=== PATIENT | female | born 1960 | race Hispanic/Latino ===

== ENCOUNTER 2019-08-08 07:25 | Day surgery (SDC) | payer OTHER ==
[2019-08-08] MEDS ORDERED: PROPOFOL 200 MG/20 ML VIAL IV ONE (07:59)
[2019-08-08] MEDS ORDERED: LIDOCAINE 1% MPF 5 ML VIAL ONE (07:59)
[2019-08-08] MEDS ORDERED: GLYCOPYRROLATE 0.2 MG/ML SYR ONE (08:07)
--- NOTE | 2019-08-08 08:39 | ENDO RPT ---
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 ESTIMATED BLOOD LOSS: None CONSENT: The patient understands the risks and benefits of the procedure and understands that these risks include, but are not limited to: sedation, allergic reaction, infection, perforation and/or bleeding. Alternative means of evaluation and treatment include, among others: physical exam, x-rays, and/or surgical intervention. The patient elects to proceed with this endoscopic procedure. DESCRIPTION OF PROCEDURE: During intra-op preparation period all mechanical medical equipment was checked for proper function. Hand hygiene and appropriate measures for infection prevention was taken. Procedure, possible complications, alternatives including, but not limited to possibility of bleeding, perforation, tear, infection, sepsis, need for surgery, need for blood transfusion, were explained to the patient. After the risks, benefits and alternatives of the procedure were thoroughly explained, Informed consent was verified, confirmed and timeout was successfully executed by the treatment team. The patient was placed in the left lateral position. A digital rectal exam was performed and revealed several skin tags and A digital rectal exam was performed and revealed internal hemorrhoids. After appropriate level of anesthesia, the scope was passed. The EC-[id number] ([id number]) endoscope was introduced through the anus and advanced to the cecum, which was identified by both the appendix and ileocecal valve. The quality of the prep was good. The instrument was then slowly withdrawn as the colon was fully examined. Scope withdrawal time was 7 minutes. COLON FINDINGS: A normal appearing cecum, ileocecal valve, and appendiceal orifice were identified. the ascending, transverse, descending, sigmoid colon, and rectum appeared unremarkable. Retroflexed views revealed no abnormalities. The scope was then completely withdrawn from the patient and the procedure terminated. ADVERSE EVENTS: There were no complications. IMPRESSIONS: A normal appearing cecum, ileocecal valve, and appendiceal orifice were identified. the ascending, transverse, descending, sigmoid colon, and rectum appeared unremarkable RECOMMENDATIONS: 1. fiber rich diet 2. Monitor for any evidence of rectal bleeding. 3. yearly hemoccult starting in 4 years 4. hemorrhoidal hygiene 5. follow-up: office 2 week(s) RECALL: Return in 10 year(s) for Colonoscopy. Sooner if symptoms occur Fili Elliott DR eSigned: Fili Elliott DR 08/08/2019 8:38 AM cc: CPT CODES: ICD9 CODES: 1. 455.9 Residual hemorrhoidal skin tags 2. 455.2 Internal hemorrhoids with other complication PATIENT NAME: Caroline Morataya MR#: [id number]
[2019-08-08 09:45] VITALS: TEMP 97.8
[2019-08-08 09:47] VITALS: BP 112/53; O2SAT 98
== END 2019-08-08 09:14 | disposition home or self-care (01) ==
LOC: OR 07:25
PROVIDERS: ATTEND Surgery
PROC: 0DJD8ZZ Inspection of Lower Intestinal Tract, Via Natural or Artificial Opening Endoscopic (ICD-10-PCS; principal; 2019-08-08 08:30)
DX: Z12.11 Encounter for screening for malignant neoplasm of colon (principal); K64.8 Other hemorrhoids; L91.8 Other hypertrophic disorders of the skin; M10.9 Gout, unspecified; Z85.53 Personal history of malignant neoplasm of renal pelvis
CPT/HCPCS: 45378; J2704

== ENCOUNTER 2020-01-01 10:29 | Day surgery (SDC) | payer OTHER ==
[2019-12-29 11:40] LABS: Protime INR 0.95; Urine Appearance CLEAR; Urine Bilirubin NEGATIVE (NEG); Urine Blood 1+ (NEG); Urine Color YELLOW; Urine Glucose NEGATIVE (NEG); Urine Protein NEGATIVE (NEG); Urine Specific Gravity <=1.005 (1.005-1.030); Urine Urobilinogen 0.2 mg/dL (0.2-1.0); Urine pH 6.5 (5.0-7.0)
[2019-12-29 11:41] LABS: Urine Microscopic Reflex ORDER UMIC
[2019-12-29 11:45] LABS: Absolute Lymphocytes (CBC) 2.3 K/uL (0.7-4.9); Basophils % 0.3 % (0-1.3); Hematocrit 44.6 % (36.0-45.0); Lymphocytes % 26.3 % (15.3-44.8); MPV 8.1 fL (7.6-11.3); RBC Red Blood Cell Count 5.43 M/uL (3.86-4.86)
[2019-12-29 11:46] LABS: Urine Bacteria <20 /HPF (<20); Urine RBC <5 /HPF (NONE SEEN)
[2019-12-29 11:47] LABS: Urine Culture Reflex Order NOT NEEDED
[2019-12-29 11:48] LABS: BUN Blood Urea Nitrogen 10 mg/dL (7-18); Bicarbonate 31 mmol/L (21-32); Glucose Level 123 mg/dL (74-106); Potassium 3.8 mmol/L (3.5-5.1); Sodium Level 140 mmol/L (136-145)
--- OUTSIDE RECORDS SUMMARY | 2020-01-01 10:32 | XMS REPORT | Summary of Care ---
:1960 Author Organization [facility] Address [address] [place] [address] Care Team Providers Name Role Phone Dada Enriquez MD Primary Care Provider Reason for Referral (Routine) Status Reason Specialty Diagnoses / Referred By Referred To Procedures Contact Contact New Request Sleep Disorder Diagnoses Snoring Gasping for breath Unrefreshed by sleep Daytime hypersomnolence Erythrocytosis LATOYA (obstructive sleep apnea) Mina Diagnostic Procedures CONSULT/REFERRAL SLEEP CLINIC ADULT PULM Preferred Location: [facility] Dada Richards MD [address] [place] [address] [place] [address] Reason for Visit Reason Comments Results sleep study results Encounter Details Date Type Department Care Team Description 11/26/2019 Telephone [facility] Family Dada Enriquez, Results ( sleep study Medicine - Olivia TRINH results) [facility] [address] [place] [address] [place] [address] Allergies No Known Allergiesdocumented as of this encounter (statuses as of 11/26/2019) Medications Medication Sig Dispensed Refills Start Date End Date Status allopurinol 300 mg Take 300 mg by 0 Active tablet mouth daily. conjugated estrogens Insert into vagina 0 Active 0.625 mg/gram vaginal at bedtime. cream Blood-Glucose Meter Check glucose once 1 Each 0 10/28/2019 Active (ONETOUCH VERIO IQ daily before METER) breakfast; MiscIndications: Type Diagnosis code 2 diabetes mellitus E11.9 without complication, without long-term current use of insulin blood sugar Check glucose once 50 Strip 11 10/28/2019 Active diagnostic (ONETOUCH daily before VERIO) breakfast; stripIndications: Diagnosis code Type 2 diabetes E11.9 mellitus without complication, without long-term current use of insulin lancets (ONE TOUCH Check glucose once 50 Each 11 10/28/2019 Active DELICA) 33 gauge daily before MiscIndications: Type breakfast; 2 diabetes mellitus Diagnosis code without complication, E11.9 without long-term current use of insulin documented as of this encounter (statuses as of 11/26/2019) Active Problems Problem Noted Date LATOYA (obstructive sleep apnea) 11/26/2019 Erythrocytosis 10/28/2019 Overview: Sleep study ordered 10/28/19 History of kidney cancer 10/07/2019 Type 2 diabetes mellitus without complication 10/07/2019 Breast lump documented as of this encounter (statuses as of 11/26/2019) Immunizations Name Administration Dates Next Due Influenza Virus Vaccine Recomb Quad IM, Preserv and ABX 08/21/2019 Free 18-64 YRS documented as of this encounter Social History Tobacco Use Types Packs/Day Years Used Date Never Smoker Smokeless Tobacco: Never Used Alcohol Use Drinks/Week oz/Week Comments No Sex Assigned at Date Recorded Not on file Job Start Date Occupation Industry Not on file Not on file Not on file Travel History Travel Start Travel End No recent travel history available. documented as of this encounter Last Filed Vital Signs Not on filedocumented in this encounter Plan of Treatment Date Type Specialty Care Team Description 04/08/2020 Office Visit Family Medicine Dada Enriquez MD [address] [place] [address] [place] [address] Health Maintenance Due Date Last Done Comments HEPATITIS C (HCV) SCREEN 1960 PNEUMOCOCCAL 0-64 YEARS COMBINED SERIES (1 1965 of 1 - PPSV23) EYE EXAM 1969 LDL-C 1969 URINE MICROALBUMIN 1969 DTaP,Tdap,and Td Vaccines (1 - Tdap) 1970 FOOT EXAM 1977 Breast Cancer Screening (MAMMOGRAM) 1999 COLONOSCOPY 2009 Zoster Recombinant Vaccine (SHINGRIX) (1 2009 of 2) HgA1C 04/07/2020 10/07/2019 CREATININE (SERUM) 10/07/2020 10/07/2019, 03/20/2007 PAP SMEAR 06/29/2022 06/29/2019 INFLUENZA VACCINE Completed 08/21/2019 documented as of this encounter Results Not on filedocumented in this encounter Visit Diagnoses Diagnosis LATOYA (obstructive sleep apnea) - Primary Obstructive sleep apnea (adult) (pediatric) Snoring Other dyspnea and respiratory abnormality Gasping for breath Unrefreshed by sleep Other sleep disturbances Daytime hypersomnolence Erythrocytosis Reserved for inherently not codable concepts WITHOUT codable children documented in this encounter Insurance Payer Benefit Plan / Subscriber ID Effective Dates Phone Address Type Group COMMERCIAL COMMERCIAL [phone]-Prese HMO/PPO/PO NON-CONTRACT NON-CONTRACT nt S GENERIC GENERIC AETNA AETNA HMO [id number] 2015-Pres HMO t documented as of this encounter
--- OUTSIDE RECORDS SUMMARY | 2020-01-01 10:32 | XMS REPORT ---
:1960 Author [facility] Address [address] [place] [address] Dr. Melton [address] [place] [address] Care Team Providers Name Role Phone Unavailable Unavailable Unavailable Problems This patient has no known problems. Allergies, Adverse Reactions, Alerts This patient has no known allergies or adverse reactions. Medications This patient has no known medications.
--- OUTSIDE RECORDS SUMMARY | 2020-01-01 10:32 | XMS REPORT ---
:1960 Author Organization [employer] Care Team Providers Name Role Phone Pinky Neal Provider Role Unavailable Allergies, Adverse Reactions, Alerts Substance Reaction Event Type N.K.D.A. Info Not Available Non Drug Allergy Problems Problem Type Condition Code Onset Dates Condition Status Problem Kidney stones N20.0 Active Problem Rectocele N81.6 Active Assessment Kidney stones N20.0 Active Assessment Renal cell carcinoma of left kidney C64.2 Active Medications Medication Code Code Instructions Start End Date Status Dosage System Date Allopurinol [facility] [id number] 300 MG Orally Jul 31December Active as directed daily 2018 Results No Known Results Summary Purpose [employer] Submission
--- OUTSIDE RECORDS SUMMARY | 2020-01-01 10:32 | XMS REPORT | Summary of Care ---
:[address] [facility] Address [address] [place] [address] Care Team Providers Name Role Phone Dada Enriquez MD Primary Care Provider Reason for Visit Reason Comments Medical Records Encounter Details Date Type Department Care Team Description 11/13/2019 Telephone [facility] Family Dada Enriquez MD Medical Records Medicine - [address] [address] [place] [address] Allergies No Known Allergiesdocumented as of this encounter (statuses as of 11/13/2019) Medications Medication Sig Dispensed Refills Start Date [...] as of this encounter (statuses as of 11/13/2019) Active Problems Problem Noted Date Erythrocytosis 10/28/2019 Overview: Sleep study ordered 10/28/19 History of kidney cancer 10/07/2019 Type 2 diabetes mellitus without complication 10/07/2019 Breast lump documented as of this encounter (statuses as of 11/13/2019) Immunizations Name Administration Dates Next Due Influenza [...] Office Visit Family Medicine Dada Enriquez MD [address] [place] [address] [place] [address] Health Maintenance Due Date Last Done [...] Results Not on filedocumented in this encounter Insurance Payer Benefit Plan / Subscriber ID Effective Dates Phone Address Type Group COMMERCIAL COMMERCIAL [phone]-Juan HOFFMANO/TOMO/PO NON-CONTRACT NON-CONTRACT nt S GENERIC GENERIC AETNA AETNA O [id number] 2015-Dandre HERNANDEZ t documented as of this encounter
--- OUTSIDE RECORDS SUMMARY | 2020-01-01 10:32 | XMS REPORT | Summary of Care ---
:1960 Author Organization [facility] - Health Address [address] [place] [address] Care Team Providers Name Role Phone Mark CenterFalguni elishaista Richards MD Primary Care Provider Encounter Details Date Type Department Care Team Description 11/21/2019 Orders Only [facility] Doctor Unassigned, No [address] [facility] [place] [address] [address] [place] [address] Allergies No Known Allergiesdocumented as of this encounter (statuses as of 11/21/2019) Medications Medication Sig Dispensed Refills Start Date [...] as of this encounter (statuses as of 11/21/2019) Active Problems Problem Noted Date Erythrocytosis 10/28/2019 Overview: Sleep study ordered 10/28/19 History of kidney cancer 10/07/2019 Type 2 diabetes mellitus without complication 10/07/2019 Breast lump documented as of this encounter (statuses as of 11/21/2019) Immunizations Name Administration Dates Next Due Influenza [...] Office Visit Family Medicine Dada Enriquez MD [address] [place] [address] [place] [address] Health Maintenance Due Date Last Done [...] Completed 08/21/2019 documented as of this encounter Procedures Procedure Name Priority Date/Time Associated Diagnosis Comments EXTERNAL PROVIDER Routine 11/21/2019 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
--- OUTSIDE RECORDS SUMMARY | 2020-01-01 10:32 | XMS REPORT | Summary of Care ---
:1960 Author Organization [facility] - [facility] Address [address] [place] [address] Care Team Providers Name Role Phone SmithtonFalguni elishaista Richards MD Primary Care Provider Encounter Details Date Type Department Care Team Description 11/12/2019 Orders Only [facility] Doctor Unassigned, No [address] [facility] [place] [address] [address] [place] [address] Allergies No Known Allergiesdocumented as of this encounter (statuses as of 11/12/2019) Medications Medication Sig Dispensed Refills Start Date [...] as of this encounter (statuses as of 11/12/2019) Active Problems Problem Noted Date Erythrocytosis 10/28/2019 Overview: Sleep study ordered 10/28/19 History of kidney cancer 10/07/2019 Type 2 diabetes mellitus without complication 10/07/2019 Breast lump documented as of this encounter (statuses as of 11/12/2019) Immunizations Name Administration Dates Next Due Influenza [...] Office Visit Family Medicine Dada Enriquez MD [address] [place] [address] [place] [address] Health Maintenance Due Date Last Done [...] Procedure Name Priority Date/Time Associated Diagnosis Comments ASSIGNMENT OF BENEFITS Routine 11/12/2019 9:23 AM DIRECTOR INSTRUMENTATION documented in this encounter Results Not on filedocumented in this encounter Insurance Payer Benefit Plan / Subscriber ID Effective Dates Phone Address Type Group COMMERCIAL COMMERCIAL [phone]-Prese HMO/PPO/PO NON-CONTRACT NON-CONTRACT nt S GENERIC GENERIC AETNA AETNA O [id number] 2015-[place]andre [facility] [place] documented as of this encounter
--- OUTSIDE RECORDS SUMMARY | 2020-01-01 10:32 | XMS REPORT | Summary of Care ---
:1960 Author Organization [facility] - Health Address [address] [place] [address] Care Team Providers Name Role Phone KeymarFalguni elishaista Richards MD Primary Care Provider Encounter Details Date Type Department Care Team Description 11/06/2019 Orders Only [facility] Doctor Unassigned, No [address] [facility] [place] [address] [address] [place] [address] Allergies No Known Allergiesdocumented as of this encounter (statuses as of 11/14/2019) Medications Medication Sig Dispensed Refills Start Date [...] as of this encounter (statuses as of 11/14/2019) Active Problems Problem Noted Date Erythrocytosis 10/28/2019 Overview: Sleep study ordered 10/28/19 History of kidney cancer 10/07/2019 Type 2 diabetes mellitus without complication 10/07/2019 Breast lump documented as of this encounter (statuses as of 11/14/2019) Immunizations Name Administration Dates Next Due Influenza [...] Office Visit Family Medicine Dada Enriquez MD [address] [place] [address] [place] [address] Health Maintenance Due Date Last Done [...] Procedure Name Priority Date/Time Associated Diagnosis Comments AUTHORIZATION TO RELEASE Routine 11/06/2019 12:01 AM 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
[2020-01-01] MEDS ORDERED: Ringers Lactate 1,000 ML IV ONE ×2 (10:49→15:05)
[2020-01-01] MEDS ORDERED: SCOPOLAMINE HYDROBROMIDE PATCH TD ONE ×2 (11:55→12:00)
[2020-01-01] MEDS: CEFAZOLIN/SWI 1gm 1 GM/10 ML SYR ONE ×2 (12:35→13:50)
[2020-01-01] MEDS ORDERED: propofoL 200 MG/20 ML VIAL IV ONE (12:41)
[2020-01-01] MEDS ORDERED: GLYCOPYRROLATE 0.2 MG/ML SYR ONE (12:42)
[2020-01-01] MEDS ORDERED: MIDAZOLAM HCL 2 MG/2 ML INJ ONE (12:42)
[2020-01-01] MEDS ORDERED: FENTANYL CITR 250 MCG/5 ML ONE (12:44)
[2020-01-01] MEDS ORDERED: LIDOCAINE 2% MPF 5 ML VIAL ONE (12:44)
[2020-01-01] MEDS ORDERED: ROCURONIUM 50 MG/5 ML VIAL IV ONE (12:48)
[2020-01-01] MEDS ORDERED: LIDOCAINE JELLY 2%- 5 ML TUBE ONE (12:48)
[2020-01-01] MEDS ORDERED: ONDANSETRON 4 MG/2 ML VIAL ONE ×2 (12:48→16:48)
[2020-01-01] MEDS: VASOPRESSIN 20 UNIT/ML VIAL ONE ×3 (12:58→14:30)
[2020-01-01] MEDS ORDERED: NA CHLORIDE 0.9% 100 ML IV ONE (12:59)
[2020-01-01] MEDS ORDERED: CEFAZOLIN/SWI 1gm 1 GM/10 ML SYR ONE (13:00)
[2020-01-01] MEDS ORDERED: EPHEDRINE SULF 50 MG/ML VIAL ONE (14:36)
[2020-01-01] MEDS: HYDROMORPHONE HCL 1 MG/ML INJ ONE ×6 (16:45→17:18)
[2020-01-01] MEDS ORDERED: KETOROLAC 30 MG/ML INJ ONE (16:49)
[2020-01-01 17:55] VITALS: O2SAT 100
[2020-01-01] MEDS ORDERED: MORPHINE 4 MG/ML SYR IV PRN ×2 (18:27→18:30)
[2020-01-01] MEDS ORDERED: ACETAMINOPHEN 325 MG TABLET PO PRN ×2 (18:27→18:29)
[2020-01-01] MEDS ORDERED: PROMETHAZINE INJ 25 MG/ML AMP IV PRN ×2 (18:32→18:40)
[2020-01-01] MEDS ORDERED: PROMETHAZINE 25 MG TABLET PO PRN ×2 (18:33→18:40)
[2020-01-01] MEDS: Ringers Lactate 1,000 ML IV SCH (19:00)
[2020-01-01 19:17] VITALS: BMI 27.2
--- NOTE | 2020-01-02 01:18 | OP ---
Date of Procedure: 01/01/2020 Surgeon: Huma Noel MD [employer] Stitcher: Vanessa Mc. Preoperative Diagnoses: 1.Stage II posterior wall defect. 2.Perineocele. 3.Possible uterine prolapse. 4.Urinary frequency. Postoperative Diagnoses: 1.Stage II posterior wall defect. 2.Posterior enterocele. 3.Perineocele. 4.Stage I anterior wall defect. 5.Urinary frequency. Procedures Performed: 1.Posterior repair (rectocele repair). 2.Posterior enterocele repair. 3.Perineocele repair. 4.Cystoscopy. Estimated Blood Loss: Minimal. Specimens: No specimens. Complications: No complications. Drains: Kiran catheter. Urine Output: 200. Findings: -1, -2, -6, 5, thin, 8 cm, 0, +1, and -5. Posterior enterocele was present at the perineu m. The perineal body was very thin. The sphincter muscles have also been the external lalit sphincter as well as the perineal body was thin. Indication For Procedure: The patient is a 59-year-old female who presented for left lower quadrant pain and vaginal bulge symptoms and vaginal atrophy. The prolapse has significantly been bothersome since March 2019 when she picked up something heavy at work and felt something come out of her bottom. Did not feel the bulge at all times only notices it when she stands for long periods of time. She went to see her urologist and was told that this was the rectocele that she needed surgery and referr ed over here. 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 Past medical history is significant for left renal cell carci noma. She had a partial nephrectomy on the left side in 2013 and she has been following regularly wi th her urologist since then. The patient was then consented, possible sacrospinous fixation was disc ussed if the apical support appears to have been lost, but if not and the exam is consistent with wha t is outpatient, then she would not need a sacrospinous fixation. For her urinary frequency, discuss ed about having a cystoscopy and this was done, and she was consented. Description Of Procedure: 2 g of Ancef was given preop. She was taken back to the OR after re-conse nting in the preop area. Her children and her dbibxx-ys-spy and brother were present. She was placed in a supine fashion on the operating table. General anesthesia given. Placed in a do rsal lithotomy position using Zach stirrups. Pelvic exam was performed and POP-Q as above. Abdomen , lower abdomen, vulva, vagina, and perineum were prepped and draped in a sterile fashion. Kiran was placed to drain the bladder and clamped with a Lissette. The perineum was inspected. Rectovaginal exa m was performed again. Gloves changed. Then, 2 Allis clamps were placed at the ends of th e hymenal ring. Then, the perineum given the defect that it had as a perineocele as well as the post erior wall were all inspected. The Allis clamp was placed at least one-half the way up on the party chief ior wall and then Allis was placed on the perineal skin. After injecting with dilute vasopressin, pe rineum was incised in a triangular fashion and then the posterior wall was also marked out with a marylou mond-shaped incision on the vaginal epithelium. The vaginal epithelium was denuded. The rectovagina l septum was mostly present in the central area in the lower one-third. It seemed to be detached fro m the top, especially on the left side of it and then in the distal aspect, it was detached from the perineal body as well as from both sides in the form of a curved transverse defect. The sphincter ap peared to be torn as well. So there was a posterior enterocele as well and plan was to open the posterior vaginal epithelium in a yadira-shape, then go up dissect the rectovaginal septum posterior enterocele away from the vagina l epithelium, then laterally the sides were exposed. The initial incision was made with a scalpel an d dissection carried with a scalpel. Then, once all the posterior wall was exposed, posterior entero osvaldo reduced with the help of 3-0 Monocryl in a pursestring fashion. There was no evidence of any ne ed for pulling the rectovaginal septum all the way to the pericervical ring. However, besides this i t was also almost impossible to bring the fascia up to the pericervical ring. So after the enterocel e was closed, then we started the repair of the rectovaginal septum starting in the left lateral aspe ct and continuous running 2-0 PDS suture was taken all the way down to the level of the perineal body . Perineal body defect was done with interrupted 2-0 Vicryl sutures. After dissecting laterally mitul ugh to make sure the lateral ends of the deep transverse perinei were also reapposed. Once all these 3 stitches were placed, then the PDS suture was passed through the perineal body and sutured again t o the right lateral wall without curvilinear defect was present. Once the entire defect was rectifie d, there was still a space with no rectovaginal septum between the proximal part of the septum and th e pericervical ring. However, without the help of a graft, the fascia could not be stretched all the way up without tension and then since she has a primary defect, there was no benefit by placing the graft augmented repair. So, we proceeded with the site-specific defect repair and then the vaginal e pithelium was trimmed appropriately. The perineal body was reconstructed by bringing the external an al sphincter together with the help of two 2-0 Vicryl sutures in an end-to-end fashion using a horizo ntal mattress suture. Both sutures were placed in a similar fashion. Then, the perineal body was re constructed with the help of 2-0 Vicryl sutures that were interrupted. With a filling of the rectum, the sutures were placed and once the entire thing was closed then the posterior rectovaginal septum was sutured to the perineal body, so this would not separate. Once all this was done, the vaginal ep ithelium was trimmed appropriately and then closed with the help of 2-0 Vicryl in a continuous runnin g horizontal mattress fashion. 3-0 Vicryl was used in the distal most aspect to finish the perineal body defect repair and then subcutaneously brought in and tied inside the hymenal opening. The hymen al was in good apposition. Rectal exam negative for any foreign body or sutures. Cystoscopy was performed. The Kiran was removed. Both ureteric orifices patent and no evidence of a ny stones or tumors in the bladder. The entire bladder was well visualized including the lateral wal ls, anterior wall, periurethral area, and the entire trigone. The bladder was drained. Kiran was re placed. Vaginal packing was placed. The patient was recovered from anesthesia and taken to PACU in stable condition. EBL was minimal. Instrument, needle, and sponge counts were correct. We will see her back in a week. She will be on the floor for observation overnight. LARY/ANGELICA Voice ID: [id number] Report ID: [id number]
[2020-01-02] MEDS: Ringers Lactate 1,000 ML IV SCH (03:00)
[2020-01-02] MEDS ORDERED: MORPHINE 4 MG/ML SYR IV PRN (04:11)
[2020-01-02 12:25] VITALS: BP 112/61; TEMP 98
== END 2020-01-02 11:50 | disposition home or self-care (01) ==
LOC: OR 10:29 → 2ND-WC 16:37 → OR 01-02 11:50
PROVIDERS: ATTEND Obstetrics & Gynecology
PROC: 0WQNXZZ Repair Female Perineum, External Approach (ICD-10-PCS; 2020-01-01)
PROC: 0UQF0ZZ Repair Cul-de-sac, Open Approach (ICD-10-PCS; 2020-01-01)
PROC: 0JQC0ZZ Repair Pelvic Region Subcutaneous Tissue and Fascia, Open Approach (ICD-10-PCS; principal; 2020-01-01 11:30)
DX: N81.2 Incomplete uterovaginal prolapse (principal); N81.81 Perineocele; N95.2 Postmenopausal atrophic vaginitis; R35.0 Frequency of micturition; R73.03 Prediabetes; Z85.528 Personal history of other malignant neoplasm of kidney; Z80.3 Family history of malignant neoplasm of breast; Z83.3 Family history of diabetes mellitus
CPT/HCPCS: 85025; 80048; 36415; 86900; 86850; 85610; 86901; 85730; 57250; 57268; J2704; J2250; J3010; J1170 ×3; J0690 ×2; J7120 ×3; J2405 ×2; 81003; 81015